=== PATIENT | male | born 1975 | race Caucasian/White ===

== ENCOUNTER 2019-12-15 08:30 | Emergency (ER) | payer OTHER ==
[2019-12-15] MEDS: Tetracaine HCl/PF 0.5% 4 ML Bottle EYERT ONE (09:23)
--- NOTE | 2019-12-15 09:26 | EDM.PDOC ---
ED HPI GENERAL MEDICAL PROBLEM - General Chief Complaint: General Stated Complaint: foreign body right eye Time Seen by Provider: 12/15/19 09:00 Source of Information: Reports: Patient History Limitations: Reports: No Limitations - History of Present Illness INITIAL COMMENTS - FREE TEXT/NARRATIVE: 44-year-old male presents to the emergency room with complaints of foreign body in his right eye. 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 He reports irritation , pain, redness, tearing in the right eye. He was unable to remove this. He now presents to the emergency room for evaluation. He does wear corrective lenses denies contacts. He has no other complaints. He obviously has a red eye with some injection and tearing. Onset: Sudden Onset Date: 12/14/19 Duration: Hour(s):, Constant Location: Reports: Other (right eye) Quality: Reports: Burning Severity: Moderate Improves with: Reports: None Worsens with: Reports: Movement (right eye) Associated Symptoms: Reports: Other (tearining and reddness right eye) Right Eye Pain Score (Numeric/FACES): 7 - Related Data Allergies Allergy/AdvReac Type Severity Reaction Status Date / Time No Known Drug Allergies Allergy Cannot Verified 12/15/19 08:42 Remember Home Meds: Home Meds ClonazePAM [KlonoPIN] 0.5 mg PO BID PRN 12/15/19 [History] buPROPion [Wellbutrin] 200 mg PO BID 12/15/19 [History] Past Medical History HEENT History: Reports: Hard of Hearing, Impaired Vision Cardiovascular History: Reports: Heart Murmur Respiratory History: Reports: None Gastrointestinal History: Reports: None Genitourinary History: Reports: None Musculoskeletal History: Reports: None Neurological History: Reports: Seizure Psychiatric History: Reports: ADHD, Anxiety, Depression, OCD, Suicide Attempt Endocrine/Metabolic History: Reports: None Hematologic History: Reports: None Immunologic History: Reports: None Oncologic (Cancer) History: Reports: None Dermatologic History: Reports: None - Infectious Disease History Infectious Disease History: Reports: Chicken Pox, Influenza - Past Surgical History HEENT Surgical History: Reports: Myringotomy w Tube(s) Cardiovascular Surgical History: Reports: None Respiratory Surgical History: Reports: None GI Surgical History: Reports: None Male Surgical History: Reports: Circumcision Endocrine Surgical History: Reports: None Neurological Surgical History: Reports: None Musculoskeletal Surgical History: Reports: None Oncologic Surgical History: Reports: None Dermatological Surgical History: Reports: None Social & Family History - Family History Family Medical History: Noncontributory - Tobacco Use Smoking Status *Q: Current Every Day Smoker Years of Tobacco use: 30 Packs/Tins Daily: 0.5 - Caffeine Use Caffeine Use: Reports: Coffee, Soda - Alcohol Use Days Per Week of Alcohol Use: 7 Number of Drinks Per Day: 4 Total Drinks Per Week: 28 - Recreational Drug Use Recreational Drug Use: No ED ROS GENERAL - Review of Systems Review Of Systems: Comprehensive ROS is negative, except as noted in HPI. ED EXAM GENERAL W FULL EYE - Physical Exam Exam: See Below Exam Limited By: No Limitations General Appearance: Alert, WD/WN, No Apparent Distress Eye Exam: Bilateral Eye: EOMI Visual Acuity (R) 20/: 30 Visual Acuity (L) 20/: 20 With Correction: Yes Eyelids: Right: Normal Appearance Conjunctiva & Sclera: Right: Discharge, Injected, Left: Normal Appearance Cornea Exam: Right: Foreign Body, Examined with Flourescein, Left: Normal Appearance Extraocular Movements: Bilateral: Intact Pupils: Normal Accommodation Pupillary Size: Bilateral: 2 mm Pupillary Reaction: Bilateral: Brisk Ears: Hearing Grossly Normal Nose: Normal Inspection Throat/Mouth: Normal Voice, No Airway Compromise Head: Atraumatic, Normocephalic Neck: Normal Inspection Respiratory/Chest: No Respiratory Distress Neurological: Alert, Oriented Psychiatric: Normal Affect, Normal Mood Skin Exam: Warm ED EYE w/ Add Procedure - Eye Procedure Alcaine Drops Administered: Yes Eye FB Removal: Removal w/ Cotton Swab Antibiotic Oinment/Drps Admin: Right Eye Course - Vital Signs Last Recorded V/S: Last Vital Signs Temp 98.7 F 12/15/19 08:37 Pulse 58 L 12/15/19 08:37 Resp 18 12/15/19 08:37 BP 150/88 H 12/15/19 08:37 Pulse Ox 97 12/15/19 08:37 - Orders/Labs/Meds Meds: Medications Discontinued Medications Generic Name Dose Route Start Last Admin Trade Name Freq PRN Reason Stop Dose Admin Tetracaine HCl 1 ml 12/15/19 09:15 Tetracaine 0.5% Steri-Unit Cielo EYERT 12/15/19 09:16 ASDIRECTED ONE - Re-Assessments/Exams Free Text/Narrative Re-Assessment/Exam: 12/15/19 09:53 Patient feels 100% better with removal of the foreign body from his right eye. Is not having any pain or discomfort. Departure - Departure Time of Disposition: 10:20 Disposition: Home, Self-Care 01 Condition: Good Clinical Impression: Foreign body in cornea, right eye, initial encounter - Discharge Information *PRESCRIPTION DRUG MONITORING PROGRAM REVIEWED*: Not Applicable *COPY OF PRESCRIPTION DRUG MONITORING REPORT IN PATIENT ABDON: Not Applicable Instructions: Eye Foreign Body, [id number] Referrals: PCP,None [Ordering Only Provider] - Additional Instructions: Follow-up with [facility] in [place] 24-48 hours Care Plan Goals: 1. Ciprofloxacin ophthalmologic 1-2 drops in the right eye every 6 hours until follow-up with optometry. 2. Wear protective eye gear while at work at all times 3. Follow-up with [facility] in 24-48 hours. Sepsis Event Note - Evaluation Sepsis Screening Result: No Definite Risk - Focused Exam Vital Signs: Vital Signs Temp Pulse Resp BP Pulse Ox 12/15/19 08:37 98.7 F 58 L 18 150/88 H 97 Date Exam was Performed: 12/15/19 Time Exam was Performed: 09:21 - Assessment/Plan Assessment:: Foreign body right eye Plan: 1. Ciprofloxacin drops 1-2 drops every 6 hours 2. Wear protective eye gear at all times 3. Follow-up with [facility] in [facility] in 24-48 hours for optometry exam.
[2019-12-15] MEDS: Ciprofloxacin 0.3% Ophth Soln 5 ML Bottle EYEBOTH SCH (10:14)
[2019-12-15] MEDS: Diphtheria,Pertussis(Acell),Tetanus Vaccine 0.5 ML SDV IM ONE (10:15)
[2019-12-15] MEDS: Ciprofloxacin 0.3% Ophth Soln 2.5 ML Bottle EYERT SCH (10:21)
== END 2019-12-15 10:30 | disposition home or self-care (01) ==
LOC: KA.ED 08:30
DX: T15.01XA Foreign body in cornea, right eye, initial encounter (principal); F32.9 Major depressive disorder, single episode, unspecified; F17.210 Nicotine dependence, cigarettes, uncomplicated; Z23 Encounter for immunization
CPT/HCPCS: 65220; 90471; 90715; 99283

== ENCOUNTER 2021-12-15 09:53 | Day surgery (SDC) | payer BC, OTHER ==
[2021-12-15] MEDS ORDERED: Sodium Chloride 0.9% 10 ML Syringe FLUSH PRN (10:00)
[2021-12-15] MEDS: Lactated Ringers 1,000 ML IV SCH (10:09)
[2021-12-15] MEDS ORDERED: Propofol 200 MG/20 ML SDV ONE (11:03)
[2021-12-15] MEDS ORDERED: Midazolam 1 MG/ML 2 ML SDV ONE (11:03)
== END 2021-12-15 12:00 | disposition home or self-care (01) ==
LOC: KA.SDS 09:53
PROVIDERS: ATTEND Family Medicine
DX: Z12.11 Encounter for screening for malignant neoplasm of colon (principal); F32.A Depression, unspecified; F41.9 Anxiety disorder, unspecified; E78.00 Pure hypercholesterolemia, unspecified; Z88.8 Allergy status to other drugs, medicaments and biological substances; Z80.0 Family history of malignant neoplasm of digestive organs; Z20.822 Contact with and (suspected) exposure to COVID-19
CPT/HCPCS: 00812; J2250; J2704; J7120